=== PATIENT | female | born 1950 | race Caucasian/White ===

== ENCOUNTER 2020-05-18 20:20 | Emergency (ER) | payer MEDICARE, OTHER ==
[~2020-05-18 20:20] MED LIST: ALL DAY ALLERGY10 M3 PO; ARICEPT10 MG PO; DESYREL 50 MG T50 MG PO; DOK250 MG PO; ETODOLAC400 MG PO; FEOSOL325 MG PO; IBU600 MG PO; LEVOTHYROXINE50 MCG PO; LORTAB 5-325 M1 EACH PO; METHOCARBAMOL750 MG PO; MIRAPEX1.5 MG PO; NASACORT16.9 ML; OMEPRAZOLE20 M1 PO; PAROXETINE HCL40 MG PO; PERCOCET 7.5-31 EACH PO; PRAVASTATIN SOD40 MG PO; PREDNISONE20 MG PO; PROTONIX 40 MG40 M1 PO; REQUIP1 MG PO; ROBAXIN-750750 MG PO; VENTOLIN HFA 66.7 GM INH; ZOFRAN ODT 4 MG4 MG PO; ZOFRAN4 MG PO
[2020-05-18 21:48] LABS: RED BLOOD COUNT 2.95 M/UL (4.00-5.10)
[2020-05-18 22:14] LABS: BUN/CREATININE RATIO 39 (0-10)
== END 2020-05-19 00:35 | disposition home or self-care (01) ==
LOC: ER1 20:20
PROVIDERS: Internal Medicine
DX: D64.9 Anemia, unspecified (principal)
CPT/HCPCS: 80053; 82272; 84439; 84443; 85025; 85610; 85730; 99283

== ENCOUNTER 2020-07-15 14:49 | Observation (INO) | payer MEDICARE, OTHER ==
[~2020-07-15] VITALS: Ht 149.9 cm; Wt 49.4 kg
[2020-07-15 15:26] LABS: RED BLOOD COUNT 3.29 M/UL (4.00-5.10); WHITE BLOOD COUNT 7.6 K/UL (4.5-11.0)
[2020-07-15 15:59] LABS: BUN/CREATININE RATIO 30 (0-10)
[2020-07-17] MEDS ORDERED: ENOXAPARIN40 MG/0.4 SC (11:56)
[2020-07-17] MEDS ORDERED: OXYCODONE HCL5 MG PO (11:56)
== END 2020-07-18 13:10 | disposition home or self-care (01) ==
LOC: ER1 14:49 → CDU 17:36 → M/S 17:36
PROVIDERS: Emergency Medicine; ADMIT Surgery
DX: S82.841A Displaced bimalleolar fracture of right lower leg, initial encounter for closed fracture (principal); S32.010A Wedge compression fracture of first lumbar vertebra, initial encounter for closed fracture; M06.9 Rheumatoid arthritis, unspecified; E78.5 Hyperlipidemia, unspecified; F41.9 Anxiety disorder, unspecified; F32.9 Major depressive disorder, single episode, unspecified; Z79.899 Other long term (current) drug therapy; Z20.822 Contact with and (suspected) exposure to COVID-19; W11.XXXA Fall on and from ladder, initial encounter
CPT/HCPCS: 70450; 71045; 71260; 72125; 72170; 73590; 73610; 80053; 83605; 83690; 85025; 85610; 85730; 86850; 86900; 86901; 90471; 90715; 93005; 94640; 94664; 94760; 96372; 96374; 96375; 97110-GP-CQ; 97116-GP-CQ; 97161; 97166; 97535; 99285; G0378; G0480; J1650; J1885; J2270; J2405; Q9967; U0002

== ENCOUNTER 2020-07-19 14:32 | Emergency (ER) | payer MEDICARE, OTHER ==
[~2020-07-19 14:32] MED LIST changes: +ENOXAPARIN40 MG/0.4 SC; +OXYCODONE HCL5 MG PO
== END 2020-07-19 16:20 | disposition home or self-care (01) ==
LOC: ER1 14:32
DX: S82.841A Displaced bimalleolar fracture of right lower leg, initial encounter for closed fracture (principal); S32.019A Unspecified fracture of first lumbar vertebra, initial encounter for closed fracture; Z79.899 Other long term (current) drug therapy; W19.XXXA Unspecified fall, initial encounter
CPT/HCPCS: 29515; 73610; 99283

== ENCOUNTER 2020-09-25 02:10 | Emergency (ER) | payer OTHER ==
[2020-09-25 03:56] LABS: HEMOGLOBIN 8.5 gm/dl (12.3-15.3); RED BLOOD COUNT 3.33 M/UL (4.00-5.10)
[2020-09-25 04:17] LABS: BUN/CREATININE RATIO 29 (0-10)
== END 2020-09-25 07:30 | disposition home or self-care (01) ==
LOC: ER1 02:10
PROVIDERS: Physician Assistant
DX: S32.019A Unspecified fracture of first lumbar vertebra, initial encounter for closed fracture (principal); E87.6 Hypokalemia; G30.9 Alzheimer's disease, unspecified; F02.80 Dementia in other diseases classified elsewhere, unspecified severity, without behavioral disturbance, psychotic disturbance, mood disturbance, and anxiety; X58.XXXA Exposure to other specified factors, initial encounter
CPT/HCPCS: 72131; 80053; 81001; 85025; 87086; 99284

== ENCOUNTER 2021-06-28 11:55 | Emergency (ER) | payer MEDICARE, OTHER ==
[2021-06-28 13:16] LABS: HEMOGLOBIN 8.2 gm/dl (12.3-15.3); RED BLOOD COUNT 3.44 M/UL (4.00-5.10); WHITE BLOOD COUNT 7.8 K/UL (4.5-11.0)
[2021-06-28 13:44] LABS: BUN/CREATININE RATIO 26 (0-10)
[2021-06-28 14:37] LABS: HEMOGLOBIN 7.9 gm/dl (12.3-15.3); RED BLOOD COUNT 3.29 M/UL (4.00-5.10); WHITE BLOOD COUNT 7.1 K/UL (4.5-11.0)
== END 2021-06-28 21:00 | disposition home or self-care (01) ==
LOC: ER1 11:55
PROVIDERS: Emergency Medicine
DX: D64.9 Anemia, unspecified (principal); E07.9 Disorder of thyroid, unspecified; E78.5 Hyperlipidemia, unspecified
CPT/HCPCS: 36430; 80053; 82270; 82550; 82553; 82607; 82728; 82746; 83540; 83550; 84484; 85025; 85045; 86850; 86900; 86901; 86920; 99284; P9016

== ENCOUNTER 2021-08-19 20:48 | Emergency (ER) | payer OTHER ==
[2021-08-19 21:21] LABS: HEMOGLOBIN 10.3 gm/dl (12.3-15.3); RED BLOOD COUNT 3.86 M/UL (4.00-5.10); WHITE BLOOD COUNT 7.9 K/UL (4.5-11.0)
[2021-08-19 21:41] LABS: BUN/CREATININE RATIO 23 (0-10)
[2021-08-20] MEDS ORDERED: CEPHALEXIN500 MG PO (00:07)
== END 2021-08-20 00:26 | disposition home or self-care (01) ==
LOC: ER1 20:48
PROVIDERS: Physician Assistant Medical
DX: L82.1 Other seborrheic keratosis (principal); E87.6 Hypokalemia
CPT/HCPCS: 80053; 85025; 86666; 99283